=== PATIENT | male | born 1965 | race Caucasian/White ===

== ENCOUNTER 2021-06-19 22:00 | Emergency (ER) | payer OTHER ==
[2021-06-19 22:09] VITALS: BP 115/79; PULSE 74; TEMP 97.6; BMI 23.3
== END 2021-06-20 01:13 | disposition home or self-care (01) ==
LOC: FER 22:00
DX: S60.221A Contusion of right hand, initial encounter (principal)
CPT/HCPCS: 73110-TC-RT-FY; 73130-TC-RT-FY; 99284-25

== ENCOUNTER 2022-06-27 10:27 | Emergency (ER) | payer OTHER ==
[2022-06-27 10:39] VITALS: BP 111/68; PULSE 82; RESP 18; TEMP 98.2; BMI 22.8
[2022-06-27] MEDS ORDERED: DEXAMETHASONE SOD PHOSPHATE 10 MG/1 ML VIAL PO ONE (11:00)
[2022-06-27] MEDS ORDERED: DEXAMETHASONE SOD PHOSPHATE 10 MG/1 ML VIAL ONE (11:05)
== END 2022-06-27 11:15 | disposition home or self-care (01) ==
LOC: JER 10:27 → JERFT 10:27
DX: J02.9 Acute pharyngitis, unspecified (principal)
CPT/HCPCS: 99283-25; J1100